=== PATIENT | female | born 1980 | race Caucasian/White ===

== ENCOUNTER 2022-12-11 07:10 | Emergency (ER) | payer OTHER, MEDICAID ==
[2022-12-11] MEDS ORDERED: Sodium Chloride 0.9% 10 ML Syringe FLUSH PRN (07:17)
[2022-12-11] MEDS ORDERED: Naloxone 0.4 MG/ML SDV IVPUSH PRN ×2 (07:18→07:29)
[2022-12-11] MEDS ORDERED: fentaNYL 50 MCG/ML SDV IVPUSH ONE (07:18)
[2022-12-11] MEDS ORDERED: Ondansetron 4 MG/2 ML SDV IVPUSH ONE (07:18)
[2022-12-11 07:25] LABS: BASOPHILS ABSOLUTE AUTO 0.1 x10^3/uL (0.0-0.2); BASOPHILS PERCENT AUTO 0.6 % (0.2-1.2); EOSINOPHILS ABSOLUTE AUTO 0.9 x10^3/uL (0.0-0.5); EOSINOPHILS PERCENT AUTO 11.8 % (0.0-4.0); HEMATOCRIT 43.7 % (33.0-47.0); HEMOGLOBIN 15.4 g/dL (12.0-16.0); IMMATURE GRAN ABSOLUTE AUTO 0.01 x10^3/uL (0.00-0.07); LYMPHOCYTES ABSOLUTE AUTO 1.8 x10^3/uL (1.0-4.8); LYMPHOCYTES PERCENT AUTO 22.1 % (25.0-50.0); MEAN CORPUSCULAR HEMOGLOBIN 31.6 pg (26.0-32.0); MEAN CORPUSCULAR HGB CONC 35.2 g/dL (32.0-36.0); MEAN CORPUSCULAR VOLUME 89.5 fL (78.0-93.0); MONOCYTES ABSOLUTE AUTO 0.7 x10^3/uL (0.0-0.8); MONOCYTES PERCENT AUTO 8.4 % (2.0-11.0); NEUTROPHILS ABSOLUTE AUTO 4.5 x10^3/uL (1.8-7.7); PLATELET COUNT,PLT 424 x10^3/uL (130-400); RED BLOOD CELL COUNT 4.88 x10^6/uL (4.00-5.50)
[2022-12-11] MEDS ORDERED: HYDROmorphone 1 MG/ML Syringe IVPUSH ONE ×3 (07:29→11:31)
[2022-12-11] MEDS ORDERED: Sodium Chloride 0.9% 1,000 ML IV ONE ×2 (07:30→12:44)
[2022-12-11 07:49] LABS: A/G RATIO 1.15; ALANINE AMINOTRANSFERASE,ALT 24 U/L (14-59); ALBUMIN 3.9 g/dL (3.4-5.0); ALKALINE PHOSPHATASE 78 U/L (46-116); AMYLASE 232 U/L (25-115); ASPARTATE AMNIOTRANSFERASE,AST 12 U/L (15-37); BILIRUBIN TOTAL 0.5 mg/dL (0.2-1.0); BLOOD UREA NITROGEN,BUN 10 mg/dL (7-18); CALCIUM 9.4 mg/dL (8.5-10.1); CARBON DIOXIDE,CO2 23 mmol/L (21-32); CHLORIDE,CL 104 mmol/L (98-107); CREATINE KINASE,CK 78 U/L (26-192); CREATININE 0.9 mg/dL (0.55-1.02); GLUCOSE RANDOM 123 mg/dL (70-99); LIPASE 105 U/L (73-393); POTASSIUM,K 3.6 mmol/L (3.5-5.1); PROTEIN TOTAL,TP 7.3 g/dL (6.4-8.2); SODIUM,NA 141 mmol/L (136-145)
[2022-12-11 07:50] LABS: ANION GAP 17.6 mmol/L (5-15); ESTIMATED GFR 81 mL/min (>=60)
[2022-12-11] MEDS ORDERED: predniSONE 20 MG Tab PO STA (08:39)
[2022-12-11] MEDS ORDERED: Labetalol 20 MG/4 ML Syringe IVPUSH ONE (08:44)
[2022-12-11] MEDS ORDERED: Ketorolac 30 MG/ML SDV IVPUSH ONE (10:52)
[2022-12-11] MEDS ORDERED: Morphine 2 MG/ML SYRINGE IVPUSH ONE (10:56)
[2022-12-11 13:03] LABS: BASOPHILS PERCENT AUTO 0.3 % (0.2-1.2); EOSINOPHILS PERCENT AUTO 0.4 % (0.0-4.0); HEMATOCRIT 39.5 % (33.0-47.0); HEMOGLOBIN 13.8 g/dL (12.0-16.0); IMMATURE GRAN ABSOLUTE AUTO 0.03 x10^3/uL (0.00-0.07); LYMPHOCYTES ABSOLUTE AUTO 0.5 x10^3/uL (1.0-4.8); LYMPHOCYTES PERCENT AUTO 5.9 % (25.0-50.0); MEAN CORPUSCULAR HEMOGLOBIN 32.5 pg (26.0-32.0); MEAN CORPUSCULAR HGB CONC 34.9 g/dL (32.0-36.0); MEAN CORPUSCULAR VOLUME 92.9 fL (78.0-93.0); MONOCYTES ABSOLUTE AUTO 0.3 x10^3/uL (0.0-0.8); MONOCYTES PERCENT AUTO 3.6 % (2.0-11.0); NEUTROPHILS ABSOLUTE AUTO 8.2 x10^3/uL (1.8-7.7); NEUTROPHILS PERCENT AUTO 89.5 % (50.0-80.0); PLATELET COUNT,PLT 357 x10^3/uL (130-400); RED BLOOD CELL COUNT 4.25 x10^6/uL (4.00-5.50); WHITE BLOOD CELL COUNT,WBC 9.2 x10^3/uL (4.0-10.0)
[2022-12-11 13:25] LABS: A/G RATIO 1.16; ALBUMIN 3.6 g/dL (3.4-5.0); BILIRUBIN TOTAL 0.3 mg/dL (0.2-1.0); CALCIUM 8.7 mg/dL (8.5-10.1); CREATININE 0.7 mg/dL (0.55-1.02); EST CRCL DRUG DOSING (CG) 97.01 mL/min; POTASSIUM,K 4.3 mmol/L (3.5-5.1); PROTEIN TOTAL,TP 6.7 g/dL (6.4-8.2)
[2022-12-11 13:27] LABS: ANION GAP 14.3 mmol/L (5-15)
[2022-12-11] MEDS: HYDROmorphone 1 MG/ML Syringe IVPUSH PRN ×2 (15:26→17:02)
== END 2022-12-11 17:15 | disposition short-term general hospital (02) ==
LOC: VM.ED 07:10
DX: C56.3 Malignant neoplasm of bilateral ovaries (principal); C79.9 Secondary malignant neoplasm of unspecified site; K82.8 Other specified diseases of gallbladder; R91.8 Other nonspecific abnormal finding of lung field; R11.2 Nausea with vomiting, unspecified; Z88.2 Allergy status to sulfonamides; Z20.822 Contact with and (suspected) exposure to COVID-19
CPT/HCPCS: 36415; 71045; 74177; 80053; 82150; 82550; 83690; 85025; 93005; 93010; 96361; 96374; 96375; 96376; 99284; 99285-25; J1170; J1885; J2270; J2405; J3010; J3490; J7030; J7512; U0002